=== PATIENT | female | born 1960 | race Caucasian/White ===

== ENCOUNTER 2020-02-13 11:53 | Emergency (ER) | payer OTHER ==
[~2020-02-13] VITALS: Ht 162.6 cm; Wt 62.1 kg
[~2020-02-13 11:53] MED LIST: CLONAZEPAM2 MG; FLONASE16 GM NS; KEFLEX500 MG PO; NEURONTIN300 MG; PROTONIX40 MG; ULTRACET PO; ZYRTEC10 MG PO; [UNRECOGNIZED DRUG - OTHER]
[2020-02-13] MEDS ORDERED: PREMARIN0.45 MG PO (12:17)
[2020-02-13] MEDS ORDERED: LEVOFLOXACIN750 MG PO (12:18)
[2020-02-13] MEDS ORDERED: VIBERZI75 MG PO (12:18)
[2020-02-13] MEDS ORDERED: FLONASE16 GM NS (12:19)
[2020-02-13] MEDS ORDERED: SERTRALINE HCL50 MG PO (12:19)
[2020-02-13] MEDS ORDERED: PEPCID AC20 MG PO (12:20)
== END 2020-02-13 15:25 | disposition home or self-care (01) ==
LOC: ER 11:53
DX: R10.11 Right upper quadrant pain (principal); R30.0 Dysuria; Z20.828 Contact with and (suspected) exposure to other viral communicable diseases